=== PATIENT | female | born 1940 | race Caucasian/White ===

== ENCOUNTER → 2016-09-23 | Day surgery (SDC) | payer MEDICARE ==
[~2016-09-23] VITALS: Ht 165.1 cm; Wt 64.6 kg
[~2016-09-23] MED LIST: *RESP: ALBUTEROL 2.5 MG/3 ML NEB (PRN) PERIprocedural Use ONLY NEB ONE; ADVA250A INH; APIX5TAB PO; CALCTAB70 PO; CHLORHEXIDINE GLUCONATE 2 % 1 PACK (2 CLOTHS) TOP ONE; DILT-60 PO; EPINEPHrine HCL (1:1000) 1 MG/ML VIAL ONE; FLAX10002 PO; INSULIN HUMAN REGULAR 1,000 UNITS/10 ML VIAL SQ PRN; IPRAAER INH; LACTATED RINGER'S 1000 ML IV SCH; LIDOCAINE HCL 2% 50 ML VIAL ONE; LIDOCAINE VISCOUS 2% SOLN 15 ML UDC ONE; MAGN1TAB14 PO; MULT-135 PO; POVIDONE IODINE 5% (ANTISEPSIS KIT) 4 APPLICATIONS TOPICAL ONE; PROPOFOL 200 MG/20 ML AMP IV ONE; SODIUM CHLORID 0.9% 500 ML IV SCH; SYNT88TA PO; VITA100036 PO; VITATAB11 PO; ZANTTAB PO; ZOCO40TA PO
[2016-09-23 06:07] VITALS: BP 117/64; PULSE 58; RESP 20; TEMP 97.5; O2SAT 98
[2016-09-23 06:13] LABS: AUTOMATED NEUTROPHIL # 3.2 TH/MM3 (1.8-7.7); BASOPHIL # 0.1 TH/MM3 (0-0.2); BASOPHIL % 1.2 % (0.0-2.0); EOSINOPHIL # 0.1 TH/MM3 (0-0.4); HEMO FLAGS DIFF FINAL; LYMPHOCYTE # 2.3 TH/MM3 (1.0-4.8); MEAN CELL VOLUME 89.2 FL (80.0-100.0); MEAN CORPUSCULAR HEMOGLOBIN 29.9 PG (27.0-34.0); MEAN CORPUSCULAR HGB CONC 33.5 % (32.0-36.0); MONO % 11.5 % (0.0-8.0); NEUT % 49.3 % (16.0-70.0); PLATELET COUNT 328 TH/MM3 (150-450); RED CELL DISTRIBUTION WIDTH 13.5 % (11.6-17.2); WHITE BLOOD COUNT 6.4 TH/MM3 (4.0-11.0)
[2016-09-23 06:22] LABS: APTT (PATIENT) 30.7 SEC (24.3-30.1); PROTHROMBIN TIME - PATIENT 10.7 SEC (9.8-11.6)
--- NOTE | 2016-09-23 09:20 | MR ---
cc: STONEY LUA M.D. DATE 09/23/2016 PROCEDURE Fiberoptic bronchoscopy flexible REASON FOR BRONCHOSCOPY Left upper lobe lung mass, underlying malignancy suspect. PROCEDURE Fiberoptic bronchoscopy performed via LMA. Vocal cords intact. Trachea moderately hyperemic. Shelby sharp. Excess mucoid whitish secretion throughout the tracheobronchial tree all removed. Left upper, middle and lower lobes without obstruction or mass lesion. Left upper and lower lobes inspected. No obstructive pathology or mass lesion seen. Washings were obtained from both sides of the tracheobronchial tree for routine TB, fungal culture and cytological exam. Cytologic brush biopsies left upper lung lobe obtained for cytological exam. Procedure well tolerated. The patient transferred to recovery in stable condition. IMPRESSION 1. Moderate tracheobronchitis 2. No obstruction or mass lesion. 3. Samples obtained as above. 4. Procedure well tolerated. 5. The patient transferred to recovery in stable condition. Stoney Lua MD WWW/PRATIK /8:27 AM /9:14 AM
[2016-09-23 09:47] VITALS: BP 109/62; PULSE 67; RESP 16; TEMP 97.4; O2SAT 95
--- NOTE | 2016-09-23 10:01 | EKG ---
Date Performed: 09/23/2016 Time Performed: 06:24:32 PTAGE: 76 years EKG: Sinus rhythm NORMAL ECG PREVIOUS TRACING : 09/23/2013 10.45 DOCTOR: Sage Ravi Interpretating Date/Time 09/23/2016 09:58:40
== END | disposition home or self-care (01) ==
LOC: HSDC 05:15
PROVIDERS: ATTEND Internal Medicine Sleep Medicine
DX: J40 Bronchitis, not specified as acute or chronic (principal); G47.33 Obstructive sleep apnea (adult) (pediatric); G47.14 Hypersomnia due to medical condition; I48.91 Unspecified atrial fibrillation; I10 Essential (primary) hypertension; Z87.891 Personal history of nicotine dependence
CPT/HCPCS: 00520; 31623; 85025; 85610; 85730; 87015; 87070; 87102; 87116; 87205; 87206; 88112; 88305; 93005; 94664; J0171; J7120; J7613